=== PATIENT | male | born 1990 | race Two or more races ===

== ENCOUNTER 2017-09-11 03:59 | Emergency (ER) | payer SELFPAY ==
[~2017-09-11] VITALS: Ht 177.8 cm; Wt 78.0 kg
[2017-09-11 06:39] VITALS: BP 125/80
== END 2017-09-11 06:43 | disposition home or self-care (01) ==
LOC: ER 04:06
DX: S83.91XA Sprain of unspecified site of right knee, initial encounter (principal); X58.XXXA Exposure to other specified factors, initial encounter; Y93.66 Activity, soccer; Y99.8 Other external cause status; Y92.89 Other specified places as the place of occurrence of the external cause
CPT/HCPCS: 73562